=== PATIENT | male | born 1970 | race Caucasian/White ===

== ENCOUNTER 2017-09-09 16:37 | Emergency (ER) | payer SELFPAY ==
[2017-09-09] MEDS ORDERED: NS(*) 0.9% 1000 ML BAG 1,000 ML IV ONE (16:52)
--- NOTE | 2017-09-09 16:53 | ER Report ---
History and Physical Time Seen By MD: 16:43 Hx. of Stated Complaint: PT BROUGHT VIA AMBULANCE FROM [facility], WITH CHEST TIGHTNESS, HEART RACING, AND LIGHTHEADEDNESS LASTED 1 HOUR HPI/ROS CHIEF COMPLAINT: Chest pain, dizziness HISTORY OF PRESENT ILLNESS: 47-year-old male patient presents to emergency room via EMS with complaint of chest pain and dizziness. Patient states that since the fall that he noticed that his heart would race whenever he was active. He states that it has seemed even worse. He states that for the last week that he' s been having his heart racing at random times. He states that he does not have any history of any heart disease. He states that he's not had any shortness of breath, nausea or vomiting. He states he became more concerned today when his heart was racing and he stood up and became very dizzy. He states he has had some intermittent chest pain. He states there is nothing seems to make the pain worse or better. He denies having any fevers, chills. Patient states that the medication he takes is Motrin p.m. at nighttime. REVIEW OF SYSTEMS: Respiratory: No cough, no dyspnea. Cardiovascular: As noted above Gastrointestinal: No vomiting, no abdominal pain. Musculoskeletal: No back pain. Allergies: Coded Allergies: peanut (Verified Allergy, Intermediate, SCRATCHY THROAT, 09/09/17) Home Meds Reported Medications Albuterol Sulfate (PROVENTIL HFA) 6.7 Gm Inh, 1-2 PUFF INH 3-4XD, INH 09/09/17 Past Medical/Surgical History Patient has a past medical history of a subdural hematoma, asthma, fracture. Patient has no surgical history. Reviewed Nurses Notes: Yes Hx Smoking: No Smoking Status: Never Smoker Hx Substance Use Disorder: No Hx Alcohol Use: No Constitutional Vital Sign - Last 24 Hours 09/09/17 09/09/17 09/09/17 09/09/17 16:37 16:38 16:56 17:00 Temp 98.9 Pulse 74 71 Resp 20 B/P (MAP) 150/94 (112) 150/94 132/100 (111) Pulse Ox 95 97 O2 Delivery Nasal Cannula O2 Flow Rate 2.0 09/09/17 09/09/17 09/09/17 09/09/17 17:07 17:30 17:37 18:00 Pulse 71 68 Resp 9 12 B/P (MAP) 134/100 (111) 134/82 (99) Pulse Ox 95 97 09/09/17 09/09/17 09/09/17 09/09/17 18:07 18:12 18:27 18:30 Pulse 67 63 71 Resp 21 15 20 B/P (MAP) 132/90 (104) Pulse Ox 92 92 92 09/09/17 09/09/17 09/09/17 09/09/17 18:42 18:57 19:00 19:02 Pulse 83 82 Resp 31 23 B/P (MAP) 120/95 (103) 134/87 (103) Pulse Ox 94 93 Physical Exam General Appearance: The patient is alert, has no immediate need for airway protection and no current signs of toxicity. ENT: Tympanic membranes are pearly-estevez, auditory canals are patent, mucous membranes are moist. Respiratory: Chest is non tender, lungs are clear to auscultation. Cardiac: regular rate and rhythm Gastrointestinal: Abdomen is soft and non tender, no masses, bowel sounds normal. Musculoskeletal: Neck: Neck is supple and non tender. Extremities have full range of motion and are non tender. Skin: No rashes or lesions. DIFFERENTIAL DIAGNOSIS: After history and physical exam differential diagnosis was considered for chest pain including but not limited to myocardial ischemia, pericarditis pulmonary embolus, chest wall pain, pleural inflammation and pulmonary infectious causes. Medical Decision Making Data Points Result Diagram: 09/09/17 1625 09/09/17 1625 Laboratory Hematology Test 09/09/17 16:25 09/09/17 18:28 Red Blood Count 5.61 M/uL (4.00-5.60) Mean Corpuscular Volume 85.6 fL (80.0-96.0) Mean Corpuscular Hemoglobin 30.7 pg (26.0-33.0) Mean Corpuscular Hemoglobin Concent 35.9 g/dL (32.0-36.0) Red Cell Distribution Width 13.4 % (11.5-14.5) Mean Platelet Volume 8.2 fL (7.2-11.1) Neutrophils (%) (Auto) 63.5 % (39.4-72.5) Lymphocytes (%) (Auto) 22.2 % (17.6-49.6) Monocytes (%) (Auto) 8.3 % (4.1-12.4) Eosinophils (%) (Auto) 5.4 % (0.4-6.7) Basophils (%) (Auto) 0.6 % (0.3-1.4) Nucleated RBC Relative Count (auto) 0.1 /100WBC Neutrophils # (Auto) 4.9 K/uL (2.0-7.4) Lymphocytes # (Auto) 1.7 K/uL (1.3-3.6) Monocytes # (Auto) 0.6 K/uL (0.3-1.0) Eosinophils # (Auto) 0.4 K/uL (0.0-0.5) Basophils # (Auto) 0.0 K/uL (0.0-0.1) Nucleated RBC Absolute Count (auto) 0.01 K/uL D-Dimer Quantitative (PE/DVT) < 0.27 ug/ml (0-0.50) Sodium Level 141 mmol/L (137-145) Potassium Level 3.6 mmol/L (3.5-5.0) Chloride Level 101 mmol/L (98-107) Carbon Dioxide Level 27 mmol/L (22-30) Blood Urea Nitrogen 16 mg/dl (9-21) Creatinine 1.00 mg/dl (0.66-1.25) Glomerular Filtration Rate Calc > 60.0 Random Glucose 99 mg/dl (75-110) Calcium Level 8.9 mg/dl (8.4-10.2) Total Bilirubin 0.4 mg/dl (0.2-1.3) Aspartate Amino Transf (AST/SGOT) 60 U/L (0-35) Alanine Aminotransferase (ALT/SGPT) 116 U/L (0-56) Alkaline Phosphatase 81 U/L (0-126) Total Protein 7.9 gm/dl (6.3-8.2) Albumin 4.1 g/dl (3.5-5.0) Troponin I < 0.012 ng/ml Chemistry Test 09/09/17 16:25 09/09/17 18:28 White Blood Count 7.7 k/uL (4.5-11.0) Red Blood Count 5.61 M/uL (4.00-5.60) Hemoglobin 17.2 g/dL (14.0-18.0) Hematocrit 48.0 % (42.0-52.0) Mean Corpuscular Volume 85.6 fL (80.0-96.0) Mean Corpuscular Hemoglobin 30.7 pg (26.0-33.0) Mean Corpuscular Hemoglobin Concent 35.9 g/dL (32.0-36.0) Red Cell Distribution Width 13.4 % (11.5-14.5) Platelet Count 173 K/uL (150-450) Mean Platelet Volume 8.2 fL (7.2-11.1) Neutrophils (%) (Auto) 63.5 % (39.4-72.5) Lymphocytes (%) (Auto) 22.2 % (17.6-49.6) Monocytes (%) (Auto) 8.3 % (4.1-12.4) Eosinophils (%) (Auto) 5.4 % (0.4-6.7) Basophils (%) (Auto) 0.6 % (0.3-1.4) Nucleated RBC Relative Count (auto) 0.1 /100WBC Neutrophils # (Auto) 4.9 K/uL (2.0-7.4) Lymphocytes # (Auto) 1.7 K/uL (1.3-3.6) Monocytes # (Auto) 0.6 K/uL (0.3-1.0) Eosinophils # (Auto) 0.4 K/uL (0.0-0.5) Basophils # (Auto) 0.0 K/uL (0.0-0.1) Nucleated RBC Absolute Count (auto) 0.01 K/uL D-Dimer Quantitative (PE/DVT) < 0.27 ug/ml (0-0.50) Glomerular Filtration Rate Calc > 60.0 Calcium Level 8.9 mg/dl (8.4-10.2) Total Bilirubin 0.4 mg/dl (0.2-1.3) Aspartate Amino Transf (AST/SGOT) 60 U/L (0-35) Alanine Aminotransferase (ALT/SGPT) 116 U/L (0-56) Alkaline Phosphatase 81 U/L (0-126) Total Protein 7.9 gm/dl (6.3-8.2) Albumin 4.1 g/dl (3.5-5.0) Troponin I < 0.012 ng/ml Coagulation Test 09/09/17 16:25 D-Dimer Quantitative (PE/DVT) < 0.27 ug/ml EKG/Imaging EKG Interpretation 12 lead EKG: Rhythm: normal sinus rhythm with sinus arrhythmia, ventricular rate of 65 bpm Sun: normal QRS: Right bundle branch block ST segments: normal Imaging CHEST PA AND LAT COMPARISONS: None. ADDITIONAL PERTINENT HISTORY: Chest pain FINDINGS: Cardiomediastinal silhouette: Negative. Pulmonary vasculature: Negative. Lung henriquez: Negative. Pleural spaces: Negative. Osseous structures: Negative. Surrounding soft tissues: Negative. IMPRESSION: No evidence of acute cardiopulmonary disease. Report Dictated By: Juan Alberto Sandoval MD at 09/09/2017 5:26 PM Report E-Signed By: Juan Alberto Sandoval MD at 09/09/2017 5:27 PM ED Course/Re-evaluation ED Course Patient was admitted and examined, history and physical were obtained. Differential diagnosis for considered. On examination patient has clear lungs, heart was regular. A CBC, CMP, troponin, EKG, chest x-ray were done. Initial lab work was unremarkable, chest x-ray was clear. I discussed findings with patient. With him having chest pain started at 2:30 in the afternoon we did go ahead and repeat the troponin at 1830. The repeat troponin was negative. We did get the patient set up with a Holter monitor. I discussed with the patient and his family that I did have concerns that this could be related to a cardiac arrhythmia. I would like to have continuous monitoring of his heart for the next 48 hours. After which time we will be we'll have the read done by the hospitals here and then transferred over to Nichol Moreno and she can make the decision as to what she would like to do. I discussed this with patient and his family and they verbalized understanding and agreement with plan. Decision to Disposition Date: Sep 09, 2017 Decision to Disposition Time: 19:09 Depart Departure Latest Vital Signs Vital Signs Date Time Temp Pulse Resp B/P (MAP) Pulse Ox O2 Delivery O2 Flow Rate FiO2 09/09/17 19:02 134/87 (103) 09/09/17 18:57 82 23 93 09/09/17 16:56 2.0 09/09/17 16:38 98.9 Nasal Cannula Impression: Primary Impression: Chest tightness Condition: Improved Disposition: HOME OR SELF-CARE Patient Instructions: Chest Pain (ED) Additional Instructions: Increase fluid intake. Get plenty of rest. Normal activities while wearing the holter monitor. Take it easy after you return it. Follow up with Kezia in the early part of next week. Return to the ER if condition worsens. NABIL HARDING [facility] Sep 09, 2017 16:53
[2017-09-09] MEDS ORDERED: ALB6.7R INH (16:54)
[2017-09-09] MEDS ORDERED: ASPIRIN 81 MG CHEW PO ONE (16:55)
[2017-09-09 16:58] LABS: PLATELET COUNT, AUTOMATED 173 K/uL (150-450)
--- NOTE | 2017-09-09 17:31 | RADIOLOGY IMAGING REPORT ---
[place] [facility] [place] NAME: Juan F Aguilar : 1970 MR: [id number] V: [id number] EXAM DATE: ORDERING PHYSICIAN: NABIL HARDING TECHNOLOGIST: Location: [facility] [place] Patient: Juan F Aguilar : 1970 Visit/Account:[id number] Date of Sevice: 09/09/2017 CHEST PA AND LAT COMPARISONS: None. ADDITIONAL PERTINENT HISTORY: Chest pain FINDINGS: Cardiomediastinal silhouette: Negative. Pulmonary vasculature: Negative. Lung henriquez: Negative. Pleural spaces: Negative. Osseous structures: Negative. Surrounding soft tissues: Negative. IMPRESSION: No evidence of acute cardiopulmonary disease. Report Dictated By: Juan Alberto Sandoval MD at 09/09/2017 5:26 PM Report E-Signed By: Juan Alberto Sandoval MD at 09/09/2017 5:27 PM WSN:[id number]
--- NOTE | 2017-09-09 18:10 | EKG ---
FACILITY: [facility] - [place] PATIENT NAME: TALHA BARRETT : [id number] MR: [id number] V: [id number] EXAM DATE: ORDERING PHYSICIAN: NABIL HARDING TECHNOLOGIST: TOMASA Test Reason : CP Blood Pressure : / mmHG Vent. Rate : 065 BPM Atrial Rate : 065 BPM P-R Int : 162 ms QRS Dur : 124 ms QT Int : 416 ms P-R-T Axes : 065 -16 022 degrees QTc Int : 432 ms Normal sinus rhythm with sinus arrhythmia Right bundle branch block Abnormal ECG No previous ECGs available Confirmed by SHERI RAMIREZ ([id number]) on 09/09/2017 7:41:45 PM Referred By: MEHDI Confirmed By:SHERI RAMIREZ
[2017-09-09 19:02] VITALS: BP 134/87
--- NOTE | 2017-09-12 20:43 | RT HOLTER TEST ---
FACILITY: [facility] PATIENT NAME: TALHA BARRETT : [id number] MR: [id number] V: [id number] EXAM DATE: ORDERING PHYSICIAN: NABIL HARDING TECHNOLOGIST: Татьяна Hook-up date: 2017-09-09 19:30:00 Duration: 47:59:00 Test Indications: chest discomfort Medications: none [id number] QRS complexes 3534 Ventricular ectopics which represent 1 % of total QRS comp. 21 Supraventricular ectopics which represent <1 % of total QRS comp. * Paced QRS complexes which represent % of total QRS comp. VENTRICULAR ECTOPY 3534 Isolated 6 Bigeminal Cycles 0 Couplets 0 Runs 0 Beats in Runs * Beats LONGEST at * BPM at :: -- * Beats FASTEST at * BPM at :: -- SUPRAVENTRICULAR ECTOPY 21 Isolated 0 Couplets 0 Runs 0 Beats in Runs * Beats LONGEST at * BPM at :: -- * Beats FASTEST at * BPM at :: -- HEART RATES 44 MIN at 05:16:16 2017-09-10 80 AVG 123 MAX at 19:13:31 2017-09-10 LONGEST RR 1.600 secs at 05:16:28 2017-09-10 S-T LEVELS Channel 1 -12.800 mm MIN at 19:30:00 2017-09-09 -12.800 mm MAX at 19:30:00 2017-09-09 Channel 2 -12.800 mm MIN at 19:30:00 2017-09-09 -12.800 mm MAX at 19:30:00 2017-09-09 Channel 3 -12.800 mm MIN at 19:30:00 2017-09-09 -12.800 mm MAX at 19:30:00 2017-09-09 The patient was in a sinus rhythm throughout the test with occasional ventricular ectopy (VE). He zuluaga d an intermittent bundle branch block. Most of the symptom events had VE associated with it. There was rare supraventricular ectopy (SVE). Confirmed by ELIZABETH SERRANO ([id number]) on 09/12/2017 8:42:46 PM Referred By: Overread By: ELIZABETH SERRANO
--- NOTE | 2017-09-13 15:28 | Transitional Care Management ---
Assessment Visit Type: Telephone Visit Spoke with: Rashawn Cardiac: WNL Except Cardiac Comment: 09/13 He can feel his heart beating funny at times, but no further chest tightness. Respiratory: WNL GI: Nutrition: WNL Wt Gain/Loss: WNL Constipation?: No : WNL Musculoskeletal, Exercise: WNL Mobility/Falls: WNL Integumentary: WNL Feeling of Well Being: WNL Socialization: WNL Pain/Management: WNL Scheduled Follow-Up with [facility]: Yes (He will follow up with Siria at [facility] once they get the Halter Monitor results.) Following Discharge Instructio: Yes TCM Discharge Criteria Transitional Care Comment: 09/13 He is awaiting halter monitor results to be faxed to Kezia at [facility], and will plan further care from there. He feels his heart beat "funny" at times, but no pain. He has been avoiding excertion. I provided the N office phone number if he were to have questions. MISHA SINGH Sep 13, 2017 15:28
== END 2017-09-09 19:16 | disposition home or self-care (01) ==
LOC: ER 16:45
DX: R07.89 Other chest pain (principal)
CPT/HCPCS: 71046; 84484; 85025; 85379; 93005; 93225; 96360; 99284; J7030; 82040; 82247; 82310; 82374; 82435; 82565; 82947; 84075; 84132; 84155; 84295; 84450; 84460; 84520

== ENCOUNTER → 2017-09-09 | Outpatient (CLI) | payer SELFPAY ==
[~2017-09-09] MED LIST: ALB6.7R INH
== END ==
LOC: AMB 16:25
PROVIDERS: ATTEND Nurse Practitioner
DX: I45.10 Unspecified right bundle-branch block (principal)
CPT/HCPCS: A0425; A0427